=== PATIENT | male | born 1965 | race Caucasian/White ===

== ENCOUNTER → 2019-04-16 | Outpatient (CLI) | payer OTHER ==
--- NOTE | 2019-04-16 15:43 | PCVCIMAG ---
APPROVED REPORT Study performed: 04/16/2019 14:35:28 Exam: Stress Echocardiogram Indication: Chest pain , Abn EKG Patient Location: Echo lab Stress Nurse: Ariadna Dunbar RN Room #: 2 Status: routine Ht: 6 ft 1 in HR: 63 bpm BP: 110/84 mmHg Rhythm: NSR Medical History Medical History: Hyperlipidemia Cardiac Risk Factors: HTN, Hyperlipidemia Previous Cardiac Procedures: none Exercise History: Indeterminate Procedure The patient underwent an Exercise Stress Test using the Kapil Protocol. Blood pressure, heart rate, and EKG were monitored. An Echocardiogram was performed by biomass technician in four stages in quad fashion. At peak stress, four selected images were obtained and placed side by side with resting images for comparison. Stress Test Details Stress Test: Exercise stress testing was performed using a Kapil protocol. HR Resting HR: 63 bpmMax Heart Rate (APMHR): 165 bpm Max HR Achieved: 164 bpmTarget HR (85% APMHR): 140 bpm % of APMHR: 99 Recovery HR: 110 bpm HR response to stress: Normal HR response to stress BP Resting BP: 110/84 mmHg Max BP: 170/80 mmHg Recovery BP: 128/76 mmHg BP response to stress: Normal blood pressure response to stress. ECG Resting ECG: Sinus Rhythm Stress ECG: Sinus Rhythm ST Change: Non-ischemic Maximum ST Deviation: -0.60 mm Arrhythmia: rare PVCs Recovery ECG: Sinus Rhythm Recovery ST Change: Non-ischemic Recovery ST Deviation: 1.50 mm Recovery Arrhythmia: None Clinical Reason for Termination: Maximal effort Stress Symptoms: unchanged,nonlimiting chest pain Exercise duration: 12 min 01 sec Highest Stage Achieved: Stage 4: 4.2 mph at 16% grade. Exercise capacity: 13.7 METs Overall Exercise Capacity for Age: Good Scale: Active Angina Score: None No complications. Stress ECG Conclusion The patient exercised according to the KAPIL protocol for 12:01 mins; achieving a work level of 13.7 METS. The resting heart rate of 63 bpm veronica to a maximum heart rate of 164 bpm. This value represent 99% of the maximal, age-predicted heart rate. The resting blood pressure of 110/84 mmHg, veronica to a maximum blood pressure of 170/80 mmHg. The exercise test was stopped due to fatigue . [place] Treadmill Score is 15.0 which is Low risk. Pre-Stress Echo The resting Echocardiogram showed normal left ventricular contractility with an estimated Ejection Fraction of about 55-60%. Normal wall motion in all segments on baseline images. Post-Stress Echo The stress Echocardiogram showed normal left ventricular contractility with an estimated Ejection Fraction of about 65-70%. Normal augmentation of wall motion in all segments on post stress images. Clinical No clinical or ECG evidence for ischemia. Conclusion Clinical Response: Non-ischemic Exercise Capacity: Superior Stress ECG Response: Non-ischemic Stress Echo Images: Non-ischemic No clinical, EKG or echocardiographic evidence for ischemia. No echocardiographic evidence for exercise induced ischemia. Normal stress echocardiogram with maximal exercise stress. <Conclusion> No clinical, EKG or echocardiographic evidence for ischemia. No echocardiographic evidence for exercise induced ischemia. Normal stress echocardiogram with maximal exercise stress.
== END | disposition home or self-care (01) ==
LOC: PCVCIMAG 13:56
PROVIDERS: ATTEND Internal Medicine Cardiovascular Disease
DX: R07.9 Chest pain, unspecified (principal); R94.31 Abnormal electrocardiogram [ECG] [EKG]; R06.02 Shortness of breath; R00.1 Bradycardia, unspecified
CPT/HCPCS: 93325; 93351